=== PATIENT | male | born 1965 | race Caucasian/White ===

== ENCOUNTER 2019-07-04 06:49 | Day surgery (SDC) | payer OTHER ==
[2019-07-02 17:05] LABS: BASOPHILS % (AUTO) 0.4 % (0.0-2.0); EOSINOPHILS # (AUTO) 0.1 K/uL (0.0-0.4); EOSINOPHILS % (AUTO) 1.6 % (0.0-4.0); HEMATOCRIT 43.3 % (36-54); HEMOGLOBIN 14.6 g/dL (14.0-18.0); LYMPHOCYTES % (AUTO) 32.3 % (20.5-51.5); MEAN CORPUSCULAR HEMOGLOBIN 30 pg (27-31); MEAN CORPUSCULAR HGB CONC 34 % (32-36); MEAN CORPUSCULAR VOLUME 90 fL (79.0-98.0); MONOCYTES # (AUTO) 0.6 K/uL (0.0-1.0); MONOCYTES % (AUTO) 9.4 % (1.7-9.3); NEUTROPHILS # (AUTO) 3.6 K/uL (1.8-7.7); NEUTROPHILS % (AUTO) 56.3 % (40.0-70.0); PLATELET COUNT (AUTO) 218 K/uL (130-430); RED BLOOD CELL COUNT(AUTO) 4.82 MIL/uL (4.2-6.2); RED CELL DISTRIBUTION WIDTH 13.6 % (9.0-15.0); WHITE BLOOD COUNT (AUTO) 6.3 K/uL (4.8-10.8)
[2019-07-02 17:10] LABS: CREATININE 1.15 mg/dL (0.55-1.30); POTASSIUM 4.3 mmol/L (3.5-5.1)
[~2019-07-04] VITALS: Ht 177.8 cm; Wt 88.5 kg
[2019-07-04] MEDS ORDERED: SUCCINYLCHOLINE CHLORIDE 20 MG/ML(QUELICIN) IVP ONE ×2 (06:50→08:45)
[2019-07-04] MEDS ORDERED: DEXAMETHASONE SOD PHOSPHATE 4 MG/ML VIAL IVP ONE (08:45)
[2019-07-04] MEDS ORDERED: MUPIROCIN 2% TOPICAL OINTMENT 22 GM TP ONE (08:45)
[2019-07-04] MEDS ORDERED: LIDOCAINE/EPI 1% 1:100000 20 ML VIAL INJ ONE (08:45)
[2019-07-04] MEDS ORDERED: NS IRRIG SOLN 1000 ML IR ONE (08:45)
[2019-07-04] MEDS ORDERED: ONDANSETRON HCL 4 MG/2 ML VIAL IVP ONE (08:45)
[2019-07-04] MEDS ORDERED: NS 1000 ML IV.SOLN IV ONE (08:45)
[2019-07-04] MEDS ORDERED: PROPOFOL 200MG/ 20ML VIAL (DIPRIVAN) IV ONE (08:45)
[2019-07-04] MEDS ORDERED: SEVOFLURANE 15 MIN GAS INH ONE (08:45)
[2019-07-04] MEDS ORDERED: MIDAZOLAM HCL 5 MG/5 ML VIAL IVP ONE (08:45)
[2019-07-04] MEDS ORDERED: fentaNYL CITRATE 250 MCG/5 ML AMP IV ONE (08:45)
[2019-07-04] MEDS ORDERED: LR 1,000 ML IV SCH (10:00)
[2019-07-04] MEDS ORDERED: MEPERIDINE HCL/PF 25 MG/ML DISP.SYRIN IVP PRN (10:00)
[2019-07-04] MEDS ORDERED: HYDROmorphone 1 MG INJ. 1 MG/ML AMPUL IVP PRN (10:00)
[2019-07-04] MEDS ORDERED: ONDANSETRON HCL 4 MG/2 ML VIAL IVP PRN (10:00)
[2019-07-04] MEDS ORDERED: KETOROLAC TROMETHAMINE 30 MG VIAL IVP PRN (10:00)
[2019-07-04 12:44] VITALS: BP_SYST 122
== END 2019-07-04 13:40 | disposition home or self-care (01) ==
LOC: STU 06:49 → SDS 06:49
PROVIDERS: ATTEND Otolaryngology
DX: J34.89 Other specified disorders of nose and nasal sinuses (principal); H65.92 Unspecified nonsuppurative otitis media, left ear; J34.2 Deviated nasal septum; H65.02 Acute serous otitis media, left ear; H68.101 Unspecified obstruction of Eustachian tube, right ear; G43.909 Migraine, unspecified, not intractable, without status migrainosus; H90.3 Sensorineural hearing loss, bilateral; J30.1 Allergic rhinitis due to pollen; Z79.899 Other long term (current) drug therapy
CPT/HCPCS: 30140; 30520; 36415; 69436; 71046; 80048; 85025; 88305; 93005; J0330; J1100; J2250; J2405; J2704; J3010; J7030; L8699